=== PATIENT | female | born 1970 | race Hispanic/Latino ===

== ENCOUNTER → 2017-11-23 | Outpatient (CLI) | payer OTHER ==
[~2017-11-23] MED LIST: OMEPRAZOLE40 MG PO
--- NOTE | 2017-11-23 11:07 | Diagnostic Imaging Report ---
PROCEDURE:ABDOMINAL ULTRASOUND COMPARISON:None. INDICATIONS: abdomen pain TECHNIQUE: Transverse and longitudinal images of the upper abdomen were obtained. FINDINGS: Liver: Size: 16.4 cm in the right midclavicular line, normal Appearance: Increased al echogenicity, smooth contour Mass: No focal masses Spleen: Size: 9.5 cm in length, normal Echogenicity: Normal Mass: No focal masses Gallbladder: Surgically absent. Bile Ducts: Intrahepatic Ducts: No dilatation Extrahepatic Ducts: Common bile duct measures 0.5 cm, no dilatation Pancreas: Visualized portions of the neck and proximal body are normal. Right Kidney: Size: 10.9 cm Echogenicity: Normal Collecting System: No hydronephrosis Stone: None Cyst/Mass: Questionable round hypoechoic mass in the medial right kidney which measures 1.4 x 1.3 x 1.2 cm. Left Kidney: Size: 10.1 cm Echogenicity: Normal Collecting System: No hydronephrosis Stone: None Cyst/Mass: None Vessels: Aorta: Visualized portions are normal Inferior Vena Cava: Visualized portions and normal Main Portal Vein: 0.8 cm, normal size with hepatopedal flow. Free Fluid: No ascites or pleural effusions IMPRESSION: 1. Increased hepatic parenchymal echogenicity, suggestive of steatosis. 2. Status post cholecystectomy. No biliary ductal dilatation. 3. Questionable 1.4 cm mass in the right kidney. Recommend renal protocol CT of the abdomen (with and without contrast) for further evaluation. Dictated by: Rolando Phillips M.D. on 11/23/2017 at 11:07 Electronically approved by: Rolando Phillips M.D. on 11/23/2017 at 11:07
== END ==
LOC: US 09:46
PROVIDERS: ATTEND Internal Medicine Gastroenterology
DX: R10.9 Unspecified abdominal pain (principal)
CPT/HCPCS: 76700